=== PATIENT | male | born 1930 | race African-American/Black ===

== ENCOUNTER 2019-11-29 22:31 | Inpatient (IN) ==
[2019-11-29] MEDS ORDERED: ONDANSETRON 4 MG/2 ML VIAL IV STA (22:44)
[2019-11-29] MEDS ORDERED: cefTRIAXone 1,000 MG in SODIUM CHLORIDE 0.9% 100 ML IV STA (22:44)
[2019-11-29] MEDS ORDERED: methylPREDNISolone SOD SUC 125 MG/2 ML VIAL IV STA (22:44)
[2019-11-29] MEDS ORDERED: PIPERACILLIN/TAZOBACTAM 3,375 MG in SODIUM CHLORIDE 0.9% 100 ML IV STA (22:55)
[2019-11-29] MEDS ORDERED: VANCOMYCIN INJ 1,000 MG in SODIUM CHLORIDE 0.9% 250 ML IV STA (22:55)
[2019-11-29] MEDS ORDERED: ALBUTEROL NEB SOLN 5 MG/ML 20 ML/BOTTLE CONT NEB SCH (23:00)
[2019-11-29 23:23] LABS: Basophils # 0.1 10*3/uL (0.0-0.2); Basophils % 0.4 % (0.0-0.8); Eosinophils % 0.2 % (0.00-10.9); Hematocrit 40.1 VOL% (42.0-52.0); Hemoglobin 12.7 GM/DL (14.0-18.0); Immature Granulocytes % 0.7 %; Immature Granulocytes Absolute 0.12 #; Lymphocytes # 1.1 10*3/uL (1.4-4.0); Mean Corpuscular HGB Conc 31.7 GM/DL (32-36); Mean Corpuscular Volume 95.5 FL (87-102); Mean Platelet Volume 10.6 FL (9.6-12.0); Monocytes % 9.4 % (1.7-12.7); Neutrophils % 83.3 % (38.7-73.9); Platelet Count 290 T/CUMM (130-400); Red Cell Distribution Width 11.8 % (9.3-17.3); White Blood Count 17.8 T/CUMM (4-12)
[2019-11-29 23:29] LABS: INR 1.1
[2019-11-29 23:43] LABS: Alanine Aminotransferase 18 U/L (16-61); Albumin 3.4 G/DL (3.4-5.0); Alkaline Phosphatase 82 U/L (45-117); Aspartate Amino Transferase 31 U/L (0-37); Blood Urea Nitrogen 34 MG/DL (7-18); Calcium 9.1 MG/DL (8.5-10.1); Glucose 189 MG/DL (74-106); Osmolality,Calculated 280.2 MOS/KG (273-304)
[2019-11-29 23:53] LABS: Estimated Glom Filtration Rate 0 ML/MIN; Troponin I 0.228 NG/ML (0.00-0.045)
[2019-11-29 23:57] LABS: Allen Test Positive
[2019-11-30 00:02] LABS: ABG Base Excess -5.6 MMOL/L (-2.5-2.5); ABG HCO3 16.9 MMOL/L (20-26); ABG Oxygen Saturation 84.1 % (95-100); ABG PCO2 25.5 MM HG (35-48); ABG PH 7.439 (7.35-7.45); ABG TCO2 17.7 MMOL/L (23-27)
[2019-11-30 00:07] LABS: Platelet Estimate Normal
[2019-11-30] MEDS ORDERED: ONDANSETRON 4 MG/2 ML VIAL IV PRN (00:43)
[2019-11-30] MEDS ORDERED: SODIUM CHLORIDE 0.9% 1,000 ML IV STA (00:43)
[2019-11-30] MEDS ORDERED: ACETAMINOPHEN 325 MG TABLET PO PRN (00:43)
[2019-11-30] MEDS ORDERED: ALBUTEROL/IPRATROPIUM 3 ML NEB RESP TX PRN (00:49)
[2019-11-30] MEDS ORDERED: GLUCAGON 1 MG VIAL IM PRN ×2 (00:53→00:54)
[2019-11-30] MEDS ORDERED: DEXTROSE 50% 25 GM/50 ML VIAL IV PRN (00:54)
[2019-11-30] MEDS ORDERED: DEXTROSE 10% 250 ML BAG IV PRN (00:56)
[2019-11-30] MEDS ORDERED: SODIUM CHLORIDE 0.9% 1,000 ML IV SCH (01:00)
[2019-11-30] MEDS ORDERED: INFLUENZA VIRUS VACCINE 0.5 ML SYRINGE IM ONE (02:40)
[2019-11-30] MEDS ORDERED: PNEUMOCOCCAL VACCINE (13 VALENT) 0.5 ML SYRINGE IM ONE (02:40)
[2019-11-30 04:20] LABS: Allen Test Positive; Pt O2 Delivery Device Other
[2019-11-30 04:26] LABS: ABG Base Excess -6.6 MMOL/L (-2.5-2.5); ABG Oxygen Saturation 93.5 % (95-100); ABG PCO2 26.5 MM HG (35-48); ABG PH 7.406 (7.35-7.45); ABG PO2 69.6 MM HG (80-95); ABG TCO2 14.7 MMOL/L (23-27)
[2019-11-30 04:53] LABS: Basophils % 0.2 % (0.0-0.8); Hematocrit 38.4 VOL% (42.0-52.0); Hemoglobin 12.3 GM/DL (14.0-18.0); Immature Granulocytes % 0.4 %; Immature Granulocytes Absolute 0.05 #; Lymphocytes # 0.8 10*3/uL (1.4-4.0); Mean Corpuscular Volume 94.8 FL (87-102); Mean Platelet Volume 10.2 FL (9.6-12.0); Monocytes % 2.4 % (1.7-12.7); Platelet Count 229 T/CUMM (130-400); Red Blood Count 4.05 MC/CUMM (3.8-5.5); Red Cell Distribution Width 11.8 % (9.3-17.3); White Blood Count 13.1 T/CUMM (4-12)
[2019-11-30 05:02] LABS: Apearance,Urine CLOUDY (Clear); Bacteria,Urine Occasional /HPF (Few); Bilirubin,Urine Negative (Negative); Blood, Urine Small mg/dL (Negative); Glucose,Urine (UA) 50 mg/dL (Negative); Ketones,Urine 20 mg/dL (Negative); Mucus,Urine Occasional /LPF (Occasional); Nitrite,Urine Negative (Negative); Protein,Urine 30 MG/DL; RBC,Urine 1 /HPF (0-4); Squamous Epithelial Cell,Urine Occasional /HPF (0-10); Uric Acid Crystals,Urine Occasional /HPF (<1); Urine Color Yellow (Yellow); Urine Urobilinogen < 2.0 EU/DL (0.2-1.0); WBC,Urine 2 /HPF (0-6)
[2019-11-30 05:13] LABS: Hypochromasia 1+; Lymphocytes 5 % (20-55); Ovalocytes Slight; Platelet Estimate Adequate; Segmented Neutrophils 94 % (50-85); Total Cells Counted 100
[2019-11-30 05:17] LABS: Barbiturates Screen,Urine Negative (Negative); Benzodiazepines Screen,Urine Negative (Negative); Cannabinoid Screen,Urine Negative (Negative); Opiate Screen,Urine Negative (Negative); Phencyclidine Screen,Urine Negative (Negative)
[2019-11-30 05:22] LABS: Calcium 9.3 MG/DL (8.5-10.1); Osmolality,Calculated 279.4 MOS/KG (273-304)
[2019-11-30] MEDS ORDERED: ENOXAPARIN 80 MG/0.8 ML SYRINGE SUBCUT SCH (06:30)
[2019-11-30] MEDS ORDERED: PIPERACILLIN/TAZOBACTAM 3,375 MG in SODIUM CHLORIDE 0.9% 100 ML IV SCH (08:00)
[2019-11-30] MEDS ORDERED: LEVOFLOXACIN INJ 500 MG in PREMIX 1 EACH IV SCH (08:00)
[2019-11-30] MEDS: ASPIRIN EC 81 MG TABLET PO SCH (08:57)
[2019-11-30] MEDS: amLODIPine 10 MG TABLET PO SCH (08:57)
[2019-11-30] MEDS: INSULIN REGULAR 100 UNIT/ML SUBCUT SCH ×4 (08:58→21:13)
[2019-11-30] MEDS: methylPREDNISolone SOD SUC 40 MG/1 ML VIAL IV SCH ×2 (08:58→16:04)
[2019-11-30] MEDS: PANTOPRAZOLE 40 MG TABLET PO SCH (08:58)
[2019-11-30] MEDS ORDERED: LOSARTAN 50 MG TABLET PO SCH (09:00)
[2019-11-30] MEDS ORDERED: hydroCHLOROthiazide 25 MG TABLET PO SCH (09:00)
[2019-11-30] MEDS ORDERED: ENOXAPARIN 40 MG/0.4 ML SYRINGE SUBCUT SCH (09:00)
[2019-11-30] MEDS: METOPROLOL TARTRATE 100 MG TABLET PO SCH ×2 (09:02→21:13)
[2019-11-30] MEDS: BRINZOLAMIDE 1% OPH SUSP 10 ML BOTTLE RIGHT EYE SCH ×2 (10:44→21:13)
[2019-11-30 11:07] LABS: CKMB % 3.4 %
[2019-11-30 11:09] LABS: Troponin I 2.32 NG/ML (0.00-0.045)
[2019-11-30] MEDS: ALBUTEROL/IPRATROPIUM 3 ML NEB RESP TX SCH ×2 (13:03→19:32)
[2019-11-30 14:06] LABS: CKMB % 3.2 %
[2019-11-30 14:13] LABS: Troponin I 2.55 NG/ML (0.00-0.045)
[2019-11-30 14:41] LABS: ABG Base Excess -4.9 MMOL/L (-2.5-2.5); ABG HCO3 20.4 MMOL/L (20-26); ABG Oxygen Saturation 98.7 % (95-100); ABG PCO2 28.2 MM HG (35-48); ABG PH 7.421 (7.35-7.45); ABG TCO2 16.2 MMOL/L (23-27); Allen Test Positive; Pt O2 Delivery Device BIPAP
[2019-11-30] MEDS: ROSUVASTATIN 20 MG TABLET PO SCH (21:13)
[2019-11-30] MEDS: BIMATOPROST 0.01% OPH SOLN 2.5 ML BOTTLE RIGHT EYE SCH (21:14)
[2019-12-01] MEDS: methylPREDNISolone SOD SUC 40 MG/1 ML VIAL IV SCH ×4 (00:08→23:57)
[2019-12-01] MEDS: ALBUTEROL/IPRATROPIUM 3 ML NEB RESP TX SCH ×4 (00:49→19:07)
[2019-12-01 00:57] LABS: Basophils % 0.1 % (0.0-0.8); Hematocrit 37.3 VOL% (42.0-52.0); Hemoglobin 11.7 GM/DL (14.0-18.0); Immature Granulocytes % 0.5 %; Immature Granulocytes Absolute 0.07 #; Lymphocytes % 6.7 % (21.2-54.2); Mean Corpuscular HGB Conc 31.4 GM/DL (32-36); Mean Corpuscular Volume 96.4 FL (87-102); Mean Platelet Volume 10.7 FL (9.6-12.0); Monocytes % 8.7 % (1.7-12.7); Platelet Count 244 T/CUMM (130-400); Red Blood Count 3.87 MC/CUMM (3.8-5.5); Red Cell Distribution Width 11.7 % (9.3-17.3)
[2019-12-01 01:06] LABS: Albumin 2.9 G/DL (3.4-5.0); Bilirubin,Total 1.1 MG/DL (0.2-1.0); Calcium 8.7 MG/DL (8.5-10.1); Osmolality,Calculated 275.5 MOS/KG (273-304); Risk Ratio 4.34; Total Protein 7.4 G/DL (6.4-8.3); VLDL CHOLESTEROL 21.6 MG/DL
[2019-12-01] MEDS ORDERED: clonazePAM 0.5 MG TABLET PO ONE (02:00)
[2019-12-01] MEDS ORDERED: ENOXAPARIN 80 MG/0.8 ML SYRINGE SUBCUT SCH (06:30)
[2019-12-01] MEDS: ASPIRIN EC 81 MG TABLET PO SCH (09:42)
[2019-12-01] MEDS: LEVOFLOXACIN 750 MG TABLET PO SCH (09:43)
[2019-12-01] MEDS: amLODIPine 10 MG TABLET PO SCH (09:43)
[2019-12-01] MEDS: PANTOPRAZOLE 40 MG TABLET PO SCH (09:43)
[2019-12-01] MEDS: METOPROLOL TARTRATE 100 MG TABLET PO SCH ×2 (09:43→23:50)
[2019-12-01] MEDS: ENOXAPARIN 30 MG/0.3 ML SYRINGE SUBCUT SCH (09:43)
[2019-12-01] MEDS: INSULIN REGULAR 100 UNIT/ML SUBCUT SCH ×4 (09:46→23:57)
[2019-12-01] MEDS: BRINZOLAMIDE 1% OPH SUSP 10 ML BOTTLE RIGHT EYE SCH ×2 (09:47→23:51)
[2019-12-01 20:45] LABS: ABG Base Excess -3.8 MMOL/L (-2.5-2.5); ABG HCO3 21.1 MMOL/L (20-26); ABG Oxygen Saturation 90.4 % (95-100); ABG PCO2 27.8 MM HG (35-48); ABG PH 7.443 (7.35-7.45); ABG PO2 58.2 MM HG (80-95); ABG TCO2 16.7 MMOL/L (23-27); Allen Test Positive; Pt O2 Delivery Device Other
[2019-12-01] MEDS ORDERED: VECURONIUM 10 MG VIAL IV ONE (21:12)
[2019-12-01] MEDS ORDERED: ETOMIDATE 20 MG/10 ML VIAL IV ONE (21:12)
[2019-12-01] MEDS ORDERED: FUROSEMIDE 40 MG/4 ML VIAL IV ONE (21:26)
[2019-12-01] MEDS: fentaNYL INJ 1,250 MCG in SODIUM CHLORIDE 0.9% 225 ML IV PRN (22:27)
[2019-12-01 22:34] LABS: Allen Test Positive; Pt O2 Delivery Device Ventilator
[2019-12-01 22:36] LABS: ABG Base Excess -10.1 MMOL/L (-2.5-2.5); ABG HCO3 16.4 MMOL/L (20-26); ABG Oxygen Saturation 93.6 % (95-100); ABG TCO2 21.9 MMOL/L (23-27)
[2019-12-01 22:38] LABS: ABG PCO2 83.5 MM HG (35-48); ABG PH 7.056 (7.35-7.45)
[2019-12-01] MEDS ORDERED: SODIUM BICARBONATE 50 MEQ/50 ML VIAL IV ONE (22:44)
[2019-12-01] MEDS: ROSUVASTATIN 20 MG TABLET PO SCH (23:50)
[2019-12-01] MEDS: BIMATOPROST 0.01% OPH SOLN 2.5 ML BOTTLE RIGHT EYE SCH (23:51)
[2019-12-02] MEDS: ALBUTEROL/IPRATROPIUM 3 ML NEB RESP TX SCH ×4 (00:36→19:35)
[2019-12-02 01:19] LABS: ABG Base Excess -7.2 MMOL/L (-2.5-2.5); ABG HCO3 18.4 MMOL/L (20-26); ABG Oxygen Saturation 87.5 % (95-100); ABG PCO2 64.7 MM HG (35-48); ABG PO2 70.3 MM HG (80-95); ABG TCO2 21.2 MMOL/L (23-27); Allen Test Positive; Pt O2 Delivery Device Ventilator
[2019-12-02 01:21] LABS: ABG PH 7.159 (7.35-7.45)
[2019-12-02 01:40] LABS: Allen Test Positive; Pt O2 Delivery Device Ventilator
[2019-12-02 01:42] LABS: ABG Base Excess -6.3 MMOL/L (-2.5-2.5); ABG HCO3 19.2 MMOL/L (20-26); ABG Oxygen Saturation 95.4 % (95-100); ABG PCO2 59.5 MM HG (35-48); ABG PO2 95.1 MM HG (80-95)
[2019-12-02 01:44] LABS: ABG PH 7.195 (7.35-7.45)
[2019-12-02] MEDS ORDERED: SODIUM BICARBONATE 50 MEQ/50 ML VIAL IV ONE (01:44)
[2019-12-02] MEDS ORDERED: MIDAZOLAM 2 MG/2 ML VIAL IV ONE (03:16)
[2019-12-02] MEDS ORDERED: MIDAZOLAM 10 MG/2 ML VIAL ONE (03:18)
[2019-12-02] MEDS ORDERED: PHENYLEPHRINE DRIP 40 MG/250 ML PREMIX IV ONE (03:34)
[2019-12-02] MEDS: PHENYLEPHRINE DRIP 40 MG/250 ML PREMIX IV PRN (03:40)
[2019-12-02] MEDS: MIDAZOLAM 100 MG in SODIUM CHLORIDE 0.9% 80 ML IV PRN (03:45)
[2019-12-02 04:05] LABS: Allen Test Positive; Pt O2 Delivery Device Ventilator
[2019-12-02 04:07] LABS: Basophils % 0.1 % (0.0-0.8); Hematocrit 35.5 VOL% (42.0-52.0); Hemoglobin 11.2 GM/DL (14.0-18.0); Immature Granulocytes % 1.3 %; Lymphocytes # 0.4 10*3/uL (1.4-4.0); Lymphocytes % 2.7 % (21.2-54.2); Mean Corpuscular HGB Conc 31.5 GM/DL (32-36); Mean Corpuscular Volume 95.4 FL (87-102); Mean Platelet Volume 10.8 FL (9.6-12.0); Monocytes % 8.7 % (1.7-12.7); Neutrophils % 87.2 % (38.7-73.9); Platelet Count 252 T/CUMM (130-400); Red Blood Count 3.72 MC/CUMM (3.8-5.5); Red Cell Distribution Width 11.7 % (9.3-17.3); White Blood Count 15.6 T/CUMM (4-12)
[2019-12-02 04:07] LABS: ABG Base Excess -2.5 MMOL/L (-2.5-2.5); ABG HCO3 22.2 MMOL/L (20-26); ABG Oxygen Saturation 88.2 % (95-100); ABG PCO2 54.8 MM HG (35-48); ABG PH 7.272 (7.35-7.45); ABG PO2 62.5 MM HG (80-95); ABG TCO2 22.9 MMOL/L (23-27)
[2019-12-02] MEDS ORDERED: VECURONIUM 10 MG VIAL IV ONE (04:09)
[2019-12-02 04:36] LABS: Albumin 2.7 G/DL (3.4-5.0); Bilirubin,Total 1.1 MG/DL (0.2-1.0); Calcium 8.2 MG/DL (8.5-10.1); Osmolality,Calculated 292.1 MOS/KG (273-304)
[2019-12-02 04:51] LABS: Band Neutrophils 1 % (0-10); Lymphocytes 1 % (20-55); Platelet Estimate Normal; Segmented Neutrophils 91 % (50-85); Total Cells Counted 100
[2019-12-02] MEDS ORDERED: SODIUM CHLORIDE 0.9% 1,000 ML IV ONE ×2 (04:54→16:38)
[2019-12-02] MEDS: amLODIPine 10 MG TABLET PO SCH ×2 (09:00→09:37)
[2019-12-02] MEDS: BRINZOLAMIDE 1% OPH SUSP 10 ML BOTTLE RIGHT EYE SCH ×2 (09:37→20:18)
[2019-12-02] MEDS: INSULIN REGULAR 100 UNIT/ML SUBCUT SCH ×3 (09:37→23:49)
[2019-12-02] MEDS: LEVOFLOXACIN 750 MG TABLET PO SCH (09:37)
[2019-12-02] MEDS: ASPIRIN EC 81 MG TABLET PO SCH (09:37)
[2019-12-02] MEDS: ENOXAPARIN 30 MG/0.3 ML SYRINGE SUBCUT SCH (09:38)
[2019-12-02] MEDS: PANTOPRAZOLE 40 MG VIAL IV SCH (09:38)
[2019-12-02] MEDS: methylPREDNISolone SOD SUC 40 MG/1 ML VIAL IV SCH ×2 (09:42→16:30)
[2019-12-02] MEDS: METOPROLOL TARTRATE 100 MG TABLET PO SCH (09:45)
[2019-12-02] MEDS ORDERED: INSULIN REGULAR 100 UNIT/ML SUBCUT SCH (13:08)
[2019-12-02] MEDS: fentaNYL INJ 1,250 MCG in SODIUM CHLORIDE 0.9% 225 ML IV PRN ×2 (14:25→21:30)
[2019-12-02 18:38] LABS: ABG Base Excess 0.2 MMOL/L (-2.5-2.5); ABG HCO3 24.4 MMOL/L (20-26); ABG Oxygen Saturation 88.5 % (95-100); ABG PCO2 48.2 MM HG (35-48); ABG PH 7.345 (7.35-7.45); ABG PO2 57.7 MM HG (80-95); Pt O2 Delivery Device Ventilator
[2019-12-02] MEDS: ROSUVASTATIN 20 MG TABLET PO SCH (20:18)
[2019-12-02] MEDS ORDERED: METOPROLOL TARTRATE 5 MG/5 ML VIAL IV PRN (22:05)
[2019-12-02] MEDS: BIMATOPROST 0.01% OPH SOLN 2.5 ML BOTTLE RIGHT EYE SCH (23:42)
[2019-12-03] MEDS ORDERED: SODIUM CHLORIDE 0.9% 2,000 ML IV ONE (00:06)
[2019-12-03] MEDS: ALBUTEROL/IPRATROPIUM 3 ML NEB RESP TX SCH ×4 (01:02→19:29)
[2019-12-03] MEDS: methylPREDNISolone SOD SUC 40 MG/1 ML VIAL IV SCH ×3 (01:12→16:17)
[2019-12-03 03:06] LABS: Basophils % 0.1 % (0.0-0.8); Hematocrit 30.8 VOL% (42.0-52.0); Hemoglobin 9.7 GM/DL (14.0-18.0); Immature Granulocytes % 0.7 %; Immature Granulocytes Absolute 0.07 #; Lymphocytes # 0.6 10*3/uL (1.4-4.0); Lymphocytes % 5.5 % (21.2-54.2); Mean Corpuscular HGB Conc 31.5 GM/DL (32-36); Mean Corpuscular Volume 96.3 FL (87-102); Mean Platelet Volume 10.7 FL (9.6-12.0); Monocytes % 7.6 % (1.7-12.7); Neutrophils % 86.1 % (38.7-73.9); Platelet Count 201 T/CUMM (130-400); Red Cell Distribution Width 11.6 % (9.3-17.3)
[2019-12-03 03:34] LABS: ABG Base Excess -2.1 MMOL/L (-2.5-2.5); ABG HCO3 23.7 MMOL/L (20-26); ABG Oxygen Saturation 92.7 % (95-100); ABG PCO2 44.6 MM HG (35-48); ABG PH 7.343 (7.35-7.45); ABG PO2 71.3 MM HG (80-95); ABG TCO2 25.1 MMOL/L (23-27); Allen Test Positive; Pt O2 Delivery Device Ventilator
[2019-12-03 03:36] LABS: Albumin 2.3 G/DL (3.4-5.0); Bilirubin,Total 0.4 MG/DL (0.2-1.0); Calcium 7.4 MG/DL (8.5-10.1); Osmolality,Calculated 295.4 MOS/KG (273-304); Total Protein 5.9 G/DL (6.4-8.3)
[2019-12-03] MEDS: fentaNYL INJ 1,250 MCG in SODIUM CHLORIDE 0.9% 225 ML IV PRN ×2 (06:25→14:54)
[2019-12-03] MEDS: INSULIN REGULAR 100 UNIT/ML SUBCUT SCH ×3 (06:25→18:35)
[2019-12-03] MEDS: LEVOFLOXACIN 750 MG TABLET PO SCH (08:52)
[2019-12-03] MEDS: ASPIRIN EC 81 MG TABLET PO SCH (08:52)
[2019-12-03] MEDS: ENOXAPARIN 30 MG/0.3 ML SYRINGE SUBCUT SCH (08:54)
[2019-12-03] MEDS: PANTOPRAZOLE 40 MG VIAL IV SCH (08:56)
[2019-12-03] MEDS: BRINZOLAMIDE 1% OPH SUSP 10 ML BOTTLE RIGHT EYE SCH ×2 (09:05→21:15)
[2019-12-03 10:04] LABS: Allen Test Positive; Pt O2 Delivery Device Ventilator
[2019-12-03 10:05] LABS: ABG Base Excess -1.8 MMOL/L (-2.5-2.5); ABG HCO3 22.9 MMOL/L (20-26); ABG Oxygen Saturation 97.8 % (95-100); ABG PCO2 47.9 MM HG (35-48); ABG TCO2 22.5 MMOL/L (23-27)
[2019-12-03] MEDS: PHENYLEPHRINE DRIP 40 MG/250 ML PREMIX IV PRN (10:41)
[2019-12-03] MEDS: MIDAZOLAM 100 MG in SODIUM CHLORIDE 0.9% 80 ML IV PRN (11:18)
[2019-12-03] MEDS: BIMATOPROST 0.01% OPH SOLN 2.5 ML BOTTLE RIGHT EYE SCH (21:15)
[2019-12-03] MEDS: ROSUVASTATIN 20 MG TABLET PO SCH (21:15)
[2019-12-04] MEDS: fentaNYL INJ 1,250 MCG in SODIUM CHLORIDE 0.9% 225 ML IV PRN ×4 (00:10→22:40)
[2019-12-04] MEDS: INSULIN REGULAR 100 UNIT/ML SUBCUT SCH ×5 (00:44→23:26)
[2019-12-04] MEDS: methylPREDNISolone SOD SUC 40 MG/1 ML VIAL IV SCH ×3 (00:44→20:07)
[2019-12-04] MEDS: ALBUTEROL/IPRATROPIUM 3 ML NEB RESP TX SCH ×4 (01:35→19:45)
[2019-12-04 04:27] LABS: Basophils % 0.1 % (0.0-0.8); Hematocrit 33.7 VOL% (42.0-52.0); Hemoglobin 10.3 GM/DL (14.0-18.0); Immature Granulocytes % 0.6 %; Immature Granulocytes Absolute 0.07 #; Lymphocytes # 0.4 10*3/uL (1.4-4.0); Lymphocytes % 3.8 % (21.2-54.2); Mean Corpuscular HGB Conc 30.6 GM/DL (32-36); Mean Corpuscular Volume 98.8 FL (87-102); Mean Platelet Volume 10.9 FL (9.6-12.0); Monocytes % 7.2 % (1.7-12.7); Neutrophils % 88.3 % (38.7-73.9); Platelet Count 219 T/CUMM (130-400); Red Blood Count 3.41 MC/CUMM (3.8-5.5); Red Cell Distribution Width 11.8 % (9.3-17.3); White Blood Count 10.9 T/CUMM (4-12)
[2019-12-04 04:43] LABS: Osmolality,Calculated 306.4 MOS/KG (273-304)
[2019-12-04 04:53] LABS: ABG HCO3 22.7 MMOL/L (20-26); ABG Oxygen Saturation 97.7 % (95-100); ABG PH 7.347 (7.35-7.45); ABG PO2 94.6 MM HG (80-95); ABG TCO2 21.4 MMOL/L (23-27)
[2019-12-04 05:25] LABS: Band Neutrophils 1 % (0-10); Hypochromasia Slight; Lymphocytes 5 % (20-55); Platelet Estimate Adequate; Segmented Neutrophils 87 % (50-85); Total Cells Counted 100
[2019-12-04] MEDS: ENOXAPARIN 30 MG/0.3 ML SYRINGE SUBCUT SCH (08:09)
[2019-12-04] MEDS: LEVOFLOXACIN 750 MG TABLET PO SCH (08:10)
[2019-12-04] MEDS: ASPIRIN EC 81 MG TABLET PO SCH (08:10)
[2019-12-04] MEDS: PANTOPRAZOLE 40 MG VIAL IV SCH (08:15)
[2019-12-04] MEDS: BRINZOLAMIDE 1% OPH SUSP 10 ML BOTTLE RIGHT EYE SCH ×2 (08:15→20:08)
[2019-12-04] MEDS: MIDAZOLAM 100 MG in SODIUM CHLORIDE 0.9% 80 ML IV PRN (09:45)
[2019-12-04] MEDS: ROSUVASTATIN 20 MG TABLET PO SCH (20:07)
[2019-12-04] MEDS: BIMATOPROST 0.01% OPH SOLN 2.5 ML BOTTLE RIGHT EYE SCH (20:08)
[2019-12-04] MEDS ORDERED: INSULIN GLARGINE 100 UNIT/ML SUBCUT SCH (21:00)
[2019-12-05] MEDS: ALBUTEROL/IPRATROPIUM 3 ML NEB RESP TX SCH ×4 (00:27→19:45)
[2019-12-05 03:56] LABS: ABG Base Excess -1.7 MMOL/L (-2.5-2.5); ABG HCO3 22.9 MMOL/L (20-26); ABG Oxygen Saturation 92.8 % (95-100); ABG PCO2 40.9 MM HG (35-48); ABG PH 7.368 (7.35-7.45); ABG PO2 65.9 MM HG (80-95); ABG TCO2 21.1 MMOL/L (23-27); Allen Test Positive; Pt O2 Delivery Device Ventilator
[2019-12-05] MEDS: MIDAZOLAM 100 MG in SODIUM CHLORIDE 0.9% 80 ML IV PRN ×2 (05:22→17:31)
[2019-12-05 05:37] LABS: Basophils % 0.1 % (0.0-0.8); Hematocrit 33.3 VOL% (42.0-52.0); Hemoglobin 10.2 GM/DL (14.0-18.0); Immature Granulocytes % 0.9 %; Lymphocytes # 0.4 10*3/uL (1.4-4.0); Lymphocytes % 3.2 % (21.2-54.2); Mean Corpuscular HGB Conc 30.6 GM/DL (32-36); Mean Corpuscular Volume 97.7 FL (87-102); Mean Platelet Volume 11.2 FL (9.6-12.0); Monocytes % 4.8 % (1.7-12.7); Platelet Count 211 T/CUMM (130-400); Red Blood Count 3.41 MC/CUMM (3.8-5.5); Red Cell Distribution Width 11.7 % (9.3-17.3); White Blood Count 11.4 T/CUMM (4-12)
[2019-12-05 05:54] LABS: Calcium 8.6 MG/DL (8.5-10.1); Osmolality,Calculated 309.4 MOS/KG (273-304)
[2019-12-05 06:01] LABS: Prealbumin 16.5 MG/DL (20-40)
[2019-12-05] MEDS: INSULIN REGULAR 100 UNIT/ML SUBCUT SCH ×3 (06:10→18:25)
[2019-12-05] MEDS: fentaNYL INJ 1,250 MCG in SODIUM CHLORIDE 0.9% 225 ML IV PRN ×4 (06:11→23:41)
[2019-12-05 06:45] LABS: Hypochromasia Slight; Lymphocytes 5 % (20-55); Polychromasia Slight; Segmented Neutrophils 91 % (50-85); Total Cells Counted 100
[2019-12-05 06:46] LABS: Macrocytosis Slight; Ovalocytes Slight; Platelet Estimate Normal
[2019-12-05] MEDS ORDERED: MORPHINE 4 MG/1 ML VIAL IV PRN (07:54)
[2019-12-05] MEDS: CISATRACURIUM 200 MG in SODIUM CHLORIDE 0.9% 180 ML IV SCH ×3 (08:36→22:18)
[2019-12-05] MEDS ORDERED: BISACODYL 10 MG SUPP RECTAL ONE (09:00)
[2019-12-05] MEDS: ASPIRIN EC 81 MG TABLET PO SCH (09:10)
[2019-12-05] MEDS: LEVOFLOXACIN 750 MG TABLET PO SCH (09:10)
[2019-12-05] MEDS: ENOXAPARIN 30 MG/0.3 ML SYRINGE SUBCUT SCH (09:11)
[2019-12-05] MEDS: methylPREDNISolone SOD SUC 40 MG/1 ML VIAL IV SCH ×2 (09:12→21:57)
[2019-12-05] MEDS: PANTOPRAZOLE 40 MG VIAL IV SCH (09:14)
[2019-12-05] MEDS: BRINZOLAMIDE 1% OPH SUSP 10 ML BOTTLE RIGHT EYE SCH ×2 (09:15→22:04)
[2019-12-05 09:51] LABS: ABG Base Excess -2.5 MMOL/L (-2.5-2.5); ABG HCO3 22.4 MMOL/L (20-26); ABG Oxygen Saturation 99.6 % (95-100); Allen Test Positive; Pt O2 Delivery Device Ventilator
[2019-12-05] MEDS: INSULIN GLARGINE 100 UNIT/ML SUBCUT SCH (21:56)
[2019-12-05] MEDS: ROSUVASTATIN 20 MG TABLET PO SCH (21:56)
[2019-12-05] MEDS: BIMATOPROST 0.01% OPH SOLN 2.5 ML BOTTLE RIGHT EYE SCH (22:04)
[2019-12-06] MEDS: INSULIN REGULAR 100 UNIT/ML SUBCUT SCH ×4 (00:16→18:08)
[2019-12-06] MEDS: ALBUTEROL/IPRATROPIUM 3 ML NEB RESP TX SCH ×4 (01:55→19:20)
[2019-12-06 04:30] LABS: ABG Base Excess -1.2 MMOL/L (-2.5-2.5); ABG HCO3 23.5 MMOL/L (20-26); ABG Oxygen Saturation 99.7 % (95-100); ABG PCO2 53.9 MM HG (35-48); ABG PH 7.292 (7.35-7.45); Allen Test Positive; Pt O2 Delivery Device Ventilator
[2019-12-06 05:11] LABS: Basophils % 0.1 % (0.0-0.8); Hematocrit 32.8 VOL% (42.0-52.0); Hemoglobin 9.8 GM/DL (14.0-18.0); Immature Granulocytes % 1.3 %; Immature Granulocytes Absolute 0.12 #; Lymphocytes # 0.3 10*3/uL (1.4-4.0); Lymphocytes % 3.2 % (21.2-54.2); Mean Corpuscular HGB Conc 29.9 GM/DL (32-36); Mean Corpuscular Volume 101.2 FL (87-102); Mean Platelet Volume 10.9 FL (9.6-12.0); Neutrophils % 91.4 % (38.7-73.9); Platelet Count 190 T/CUMM (130-400); Red Blood Count 3.24 MC/CUMM (3.8-5.5); Red Cell Distribution Width 11.9 % (9.3-17.3); White Blood Count 9.3 T/CUMM (4-12)
[2019-12-06 05:33] LABS: Calcium 8.3 MG/DL (8.5-10.1)
[2019-12-06 06:07] LABS: Anisocytosis 1+; Band Neutrophils 4 % (0-10); Eosinophils 1 % (0-10); Lymphocytes 6 % (20-55); Macrocytosis 1+; Platelet Estimate Normal; Polychromasia Few; Segmented Neutrophils 87 % (50-85); Total Cells Counted 100
[2019-12-06] MEDS ORDERED: SODIUM POLYSTYRENE SULFATE 15 GM/60 ML BOTTLE PO STA (06:24)
[2019-12-06] MEDS: CISATRACURIUM 200 MG in SODIUM CHLORIDE 0.9% 180 ML IV SCH ×2 (06:34→09:38)
[2019-12-06] MEDS: fentaNYL INJ 1,250 MCG in SODIUM CHLORIDE 0.9% 225 ML IV PRN ×3 (06:34→23:05)
[2019-12-06] MEDS: MIDAZOLAM 100 MG in SODIUM CHLORIDE 0.9% 80 ML IV PRN ×2 (07:55→23:06)
[2019-12-06] MEDS: INSULIN GLARGINE 100 UNIT/ML SUBCUT SCH ×2 (08:43→21:56)
[2019-12-06] MEDS: PANTOPRAZOLE 40 MG VIAL IV SCH (08:43)
[2019-12-06] MEDS: LEVOFLOXACIN 750 MG TABLET PO SCH (08:43)
[2019-12-06] MEDS: BRINZOLAMIDE 1% OPH SUSP 10 ML BOTTLE RIGHT EYE SCH ×2 (08:44→21:55)
[2019-12-06] MEDS: ENOXAPARIN 30 MG/0.3 ML SYRINGE SUBCUT SCH (08:44)
[2019-12-06] MEDS: methylPREDNISolone SOD SUC 40 MG/1 ML VIAL IV SCH ×2 (08:45→21:55)
[2019-12-06] MEDS: ASPIRIN EC 81 MG TABLET PO SCH (08:47)
[2019-12-06] MEDS ORDERED: INSULIN REGULAR 100 UNIT/ML IV ONE ×2 (09:30→13:00)
[2019-12-06] MEDS ORDERED: CALCIUM GLUCONATE 1,000 MG in SODIUM CHLORIDE 0.9% 100 ML IV ONE (10:00)
[2019-12-06] MEDS ORDERED: SODIUM POLYSTYRENE SULFATE 15 GM/60 ML BOTTLE PO ONE (13:00)
[2019-12-06] MEDS ORDERED: FUROSEMIDE 40 MG/4 ML VIAL IV ONE (15:12)
[2019-12-06] MEDS ORDERED: METOPROLOL TARTRATE 25 MG TABLET PO SCH (21:00)
[2019-12-06] MEDS: BIMATOPROST 0.01% OPH SOLN 2.5 ML BOTTLE RIGHT EYE SCH (21:55)
[2019-12-06] MEDS: ROSUVASTATIN 20 MG TABLET PO SCH (21:56)
[2019-12-07] MEDS: ALBUTEROL/IPRATROPIUM 3 ML NEB RESP TX SCH ×4 (00:05→19:05)
[2019-12-07] MEDS: INSULIN REGULAR 100 UNIT/ML SUBCUT SCH ×4 (00:34→18:31)
[2019-12-07 04:29] LABS: Basophils % 0.1 % (0.0-0.8); Red Blood Count 3.52 MC/CUMM (3.8-5.5)
[2019-12-07 04:42] LABS: Osmolality,Calculated 326.6 MOS/KG (273-304)
[2019-12-07 04:43] LABS: Allen Test Positive; Pt O2 Delivery Device Ventilator
[2019-12-07 04:44] LABS: ABG Base Excess 1.7 MMOL/L (-2.5-2.5); ABG HCO3 25.9 MMOL/L (20-26); ABG Oxygen Saturation 96.7 % (95-100); ABG PCO2 47.4 MM HG (35-48); ABG PH 7.371 (7.35-7.45); ABG TCO2 24.8 MMOL/L (23-27)
[2019-12-07 05:00] LABS: Hematocrit 35.8 VOL% (42.0-52.0); Hemoglobin 10.6 GM/DL (14.0-18.0); Immature Granulocytes % 1.7 %; Immature Granulocytes Absolute 0.24 #; Lymphocytes # 0.4 10*3/uL (1.4-4.0); Lymphocytes % 2.9 % (21.2-54.2); Mean Corpuscular HGB Conc 29.6 GM/DL (32-36); Mean Corpuscular Volume 101.7 FL (87-102); Mean Platelet Volume 11.4 FL (9.6-12.0); Monocytes % 4.7 % (1.7-12.7); Neutrophils % 90.6 % (38.7-73.9); Platelet Count 242 T/CUMM (130-400); White Blood Count 14.4 T/CUMM (4-12)
[2019-12-07 05:17] LABS: Band Neutrophils 1 % (0-10); Lymphocytes 8 % (20-55); Segmented Neutrophils 90 % (50-85)
[2019-12-07 05:18] LABS: Platelet Estimate Normal; Total Cells Counted 100
[2019-12-07] MEDS: fentaNYL INJ 1,250 MCG in SODIUM CHLORIDE 0.9% 225 ML IV PRN ×3 (06:29→21:09)
[2019-12-07] MEDS: LEVOFLOXACIN 750 MG TABLET PO SCH (09:29)
[2019-12-07] MEDS: ENOXAPARIN 30 MG/0.3 ML SYRINGE SUBCUT SCH (09:30)
[2019-12-07] MEDS: methylPREDNISolone SOD SUC 40 MG/1 ML VIAL IV SCH (09:30)
[2019-12-07] MEDS: ASPIRIN EC 81 MG TABLET PO SCH (09:30)
[2019-12-07] MEDS: INSULIN GLARGINE 100 UNIT/ML SUBCUT SCH ×2 (09:32→21:25)
[2019-12-07] MEDS: PANTOPRAZOLE 40 MG VIAL IV SCH (09:33)
[2019-12-07] MEDS: BRINZOLAMIDE 1% OPH SUSP 10 ML BOTTLE RIGHT EYE SCH ×2 (10:42→21:25)
[2019-12-07 13:25] VITALS: BP 150/77
[2019-12-07] MEDS: MIDAZOLAM 100 MG in SODIUM CHLORIDE 0.9% 80 ML IV PRN (16:23)
[2019-12-07] MEDS ORDERED: METOPROLOL TARTRATE 50 MG TABLET PO SCH (16:25)
[2019-12-07] MEDS: ROSUVASTATIN 20 MG TABLET PO SCH (21:25)
[2019-12-07] MEDS: BIMATOPROST 0.01% OPH SOLN 2.5 ML BOTTLE RIGHT EYE SCH (21:26)
[2019-12-08] MEDS: INSULIN REGULAR 100 UNIT/ML SUBCUT SCH ×3 (00:09→12:17)
[2019-12-08] MEDS: ALBUTEROL/IPRATROPIUM 3 ML NEB RESP TX SCH ×2 (03:18→08:15)
[2019-12-08] MEDS: fentaNYL INJ 1,250 MCG in SODIUM CHLORIDE 0.9% 225 ML IV PRN ×2 (04:18→13:41)
[2019-12-08 04:21] LABS: Basophils % 0.2 % (0.0-0.8); Eosinophils # 0.1 10*3/uL (0.0-0.87); Hematocrit 32.2 VOL% (42.0-52.0); Hemoglobin 9.8 GM/DL (14.0-18.0); Immature Granulocytes % 1.7 %; Immature Granulocytes Absolute 0.21 #; Mean Corpuscular HGB Conc 30.4 GM/DL (32-36); Mean Corpuscular Volume 100.3 FL (87-102); Mean Platelet Volume 11.3 FL (9.6-12.0); Monocytes % 4.6 % (1.7-12.7); NRBC # 0.02 10*3/uL; Neutrophils % 84.5 % (38.7-73.9); Platelet Count 185 T/CUMM (130-400); Red Blood Count 3.21 MC/CUMM (3.8-5.5); Red Cell Distribution Width 12.1 % (9.3-17.3); White Blood Count 12.6 T/CUMM (4-12)
[2019-12-08 04:27] LABS: Calcium 8.9 MG/DL (8.5-10.1); Osmolality,Calculated 328.6 MOS/KG (273-304)
[2019-12-08 04:30] LABS: Hypochromasia 1+; Platelet Estimate Adequate
[2019-12-08 04:32] LABS: Prealbumin 14.1 MG/DL (20-40)
[2019-12-08 04:35] LABS: ABG Base Excess 5.6 MMOL/L (-2.5-2.5); ABG HCO3 29.5 MMOL/L (20-26); ABG Oxygen Saturation 99.3 % (95-100); ABG PCO2 48.8 MM HG (35-48); ABG PH 7.413 (7.35-7.45); ABG TCO2 28.2 MMOL/L (23-27); Allen Test Positive; Pt O2 Delivery Device Ventilator
[2019-12-08] MEDS: MIDAZOLAM 100 MG in SODIUM CHLORIDE 0.9% 80 ML IV PRN (05:21)
[2019-12-08] MEDS ORDERED: methylPREDNISolone SOD SUC 40 MG/1 ML VIAL IV SCH ×2 (09:00→17:30)
[2019-12-08] MEDS: LEVOFLOXACIN 750 MG TABLET PO SCH (10:52)
[2019-12-08] MEDS: ASPIRIN EC 81 MG TABLET PO SCH (10:52)
[2019-12-08] MEDS: BRINZOLAMIDE 1% OPH SUSP 10 ML BOTTLE RIGHT EYE SCH (10:53)
[2019-12-08] MEDS: INSULIN GLARGINE 100 UNIT/ML SUBCUT SCH (10:53)
[2019-12-08] MEDS: PANTOPRAZOLE 40 MG VIAL IV SCH (10:57)
[2019-12-08] MEDS: ENOXAPARIN 30 MG/0.3 ML SYRINGE SUBCUT SCH (11:00)
[2019-12-08] MEDS ORDERED: CISATRACURIUM 200 MG in SODIUM CHLORIDE 0.9% 180 ML IV SCH (11:00)
[2019-12-08] MEDS ORDERED: VECURONIUM 10 MG VIAL IV ONE ×2 (11:01→11:15)
[2019-12-08] MEDS ORDERED: FUROSEMIDE 40 MG/4 ML VIAL IV ONE (11:28)
[2019-12-08] MEDS ORDERED: LORazepam 2 MG/1 ML VIAL IV PRN (13:19)
[2019-12-08] MEDS ORDERED: MORPHINE 4 MG/1 ML VIAL IV PRN (13:19)
== END 2019-12-08 16:50 | disposition expired | DRG 870 ==
LOC: EDUNIT# → N.ED 22:31 → SUATTDRO 11-30 00:43 → N.EDINP 11-30 00:43 → N.CC 11-30 01:48 → N.ICU 11-30 16:17
PROVIDERS: ADMIT Internal Medicine; ATTEND Internal Medicine